=== PATIENT | male | born 1975 | race Hispanic/Latino ===

== ENCOUNTER 2018-07-18 09:54 | Emergency (ER) | payer BC ==
[2018-07-18 10:11] VITALS: BP 145/78; PULSE 64; RESP 16; TEMP 97.7; O2SAT 100; BMI 25.7
[2018-07-18] MEDS ORDERED: Sodium Chloride 0.9% 1,000 ML IV STA (10:20)
--- NOTE | 2018-07-18 10:39 | ED PDOC ---
HPI: Back Time Seen by Provider: 07/18/18 10:16 Chief Complaint (Nursing): Back Pain History Per: Patient History/Exam Limitations: no limitations Onset/Duration Of Symptoms: Hrs Current Symptoms Are (Timing): Intermittent Episodes Additional Complaint(s): No PMHx presenting with R flank pain, woke him up from sleep around 7AM, had one episode of nausea and vomiting, states pain is radiating forward into abdomen. No fevers, chills. No surgeries. No urinary symptoms. PMD: Ashley SIMMONS Past Medical History Reviewed: Historical Data, Nursing Documentation, Vital Signs Vital Signs: Last Vital Signs Temp 97.7 F 07/18/18 10:09 Pulse 64 07/18/18 10:09 Resp 16 07/18/18 10:09 BP 145/78 07/18/18 10:09 Pulse Ox 100 07/18/18 10:09 - Medical History PMH: No Chronic Diseases - Surgical History Surgical History: No Surg Hx - Family History Family History: States: No Known Family Hx - Home Medications Home Medications: Ambulatory Orders Medication Instructions Recorded Hydrocodone/Acetaminophen [Vicodin 1 each PO Q8 #15 tablet 07/18/18 Es 7.5-300 mg Tablet] Ibuprofen [Motrin Tab] 600 mg PO Q6 #30 tab 07/18/18 Tamsulosin [Flomax] 0.4 mg PO DAILY #10 cap 07/18/18 - Allergies Allergies/Adverse Reactions: Allergies Allergy/AdvReac Type Severity Reaction Status Date / Time No Known Allergies Allergy Verified 07/18/18 10:14 Review of Systems ROS Statement: Except As Marked, All Systems Reviewed And Found Negative Gastrointestinal: Positive for: Nausea, Vomiting, Abdominal Pain Genitourinary Male: Negative for: Dysuria Physical Exam - Reviewed Nursing Documentation Reviewed: Yes Vital Signs Reviewed: Yes - Physical Exam Appears: Positive for: Well, Non-toxic, No Acute Distress Head Exam: Positive for: ATRAUMATIC, NORMAL INSPECTION, NORMOCEPHALIC Skin: Positive for: Normal Color, Warm, DRY Eye Exam: Positive for: EOMI, Normal appearance, PERRL ENT: Positive for: Normal ENT Inspection Neck: Positive for: Normal, Painless ROM Cardiovascular/Chest: Positive for: Regular Rate, Rhythm Respiratory: Positive for: CNT, Normal Breath Sounds Gastrointestinal/Abdominal: Positive for: Normal Exam, Soft, Tenderness (R sided Abdominal tenderness, negative mcBurneys). Negative for: Mass, Distended, Guarding, Rebound Back: Positive for: R CVA Tenderness Extremity: Positive for: Normal ROM Neurologic/Psych: Positive for: Alert, Oriented - Laboratory Results Result Diagrams: 07/18/18 10:39 07/18/18 10:39 - ECG O2 Sat by Pulse Oximetry: 100 Medical Decision Making Medical Decision MakinAM A/P: 43 year old M with no PMHx presenting with R flank pain, nausea, vomiting --Patient well appearing, standing in room, normal vitals, no distress --Differential includes but not limited to: renal colic, muscle strain, pyelo (although unlikely) --Will check CT, labs, give IVF/toradol --Will continue to monitor 1200PM --CT shows 4.8mm calculus --Patient currently feeling much better, tolerating PO, appearing well --Will refer patient to urology --Discussed taking narcotics safely and only for severe pain --Very well appearing upon discharge Disposition - Clinical Impression Clinical Impression: Kidney stone - Disposition Referrals: Mitul Lainez MD [Staff Provider] - Disposition: Routine/Home Disposition Time: 12:04 Condition: GOOD Prescriptions: Hydrocodone/Acetaminophen [Vicodin Es 7.5-300 mg Tablet] 1 each PO Q8 #15 tablet Ibuprofen [Motrin Tab] 600 mg PO Q6 #30 tab Tamsulosin [Flomax] 0.4 mg PO DAILY #10 cap Instructions: Kidney Stones in Adults, How to Strain Your Urine, Opioids for Short-Term Treatment of Pain, Taking Narcotics Safely Forms: [employer] (Sinhala)
[2018-07-18 10:50] LABS: BASO # 0.1 K/uL (0.0-0.2); BASO % 0.9 % (0.0-2.0); EOS # 0.1 K/uL (0.0-0.7); EOS % 0.5 % (0.0-4.0); HEMOGLOBIN 14.3 g/dL (12.0-18.0); LYMPH # 1.6 K/uL (1.0-4.3); LYMPH % 10.8 % (20.0-40.0); MEAN CELL VOLUME 88.7 fl (80.0-94.0); MEAN CORPUSCULAR HEMOGLOBIN 29.2 pg (27.0-31.0); MEAN PLATELET VOLUME 8.2 fl (7.2-11.7); MONO # 0.5 K/uL (0.0-0.8); MONO % 3.6 % (0.0-10.0); NEUT # 12.1 K/uL (1.8-7.0); NEUT % 84.2 % (50.0-75.0); RBC 4.89 Mil/uL (4.40-5.90); RED CELL DISTRIBUTION WIDTH 14.2 % (11.5-14.5); WHITE BLOOD COUNT 14.4 K/uL (4.8-10.8)
[2018-07-18 10:56] LABS: URINE BILIRUBIN NEGATIVE (NEGATIVE); URINE BLOOD LARGE (NEGATIVE); URINE CLARITY SLIGHTY-CLOUDY (Clear); URINE COLOR YELLOW (YELLOW); URINE GLUCOSE (UA) NEG (NEGATIVE); URINE LEUKOCYTE ESTERASE NEG Leu/uL (Negative); URINE PROTEIN 30 mg/dL (NEGATIVE); URINE UROBILINOGEN 0.2-1.0 mg/dL (0.2-1.0)
[2018-07-18 10:57] LABS: BLOOD UREA NITROGEN 20 mg/dl (9-20); CALCIUM 9.3 mg/dL (8.4-10.2); GFR NON-AFRICAN AMERICAN > 60
--- NOTE | 2018-07-18 11:55 | CT ---
Date of service: 07/18/2018 PROCEDURE: CT Abdomen and Pelvis HISTORY: Right flank pain, nausea, vomiting COMPARISON: None. TECHNIQUE: CT scan of the abdomen and pelvis was performed without oral or intravenous contrast.. Additional 2D sagittal and coronal reformatted images were obtained. . Contrast dose: Radiation dose: Total exam DLP = 552.47 mGy-cm. This CT exam was performed using one or more of the following dose reduction techniques: Automated exposure control, adjustment of the mA and/or kV according to patient size, and/or use of iterative reconstruction technique. FINDINGS: LOWER THORAX: Heart size within range of normal. No significant pericardial effusion. Small to medium-sized hiatal hernia with wall thickening of the distal esophagus likely due to protrusion of gastric mucosa. Possibility of esophagitis not excluded. Minimal passive/dependent type atelectasis both posterior lower lung quinteros.. Minimal linear scarring also seen left lung base. LIVER: Normal in size. No intrahepatic ductal dilatation. GALLBLADDER AND BILE DUCTS: No calcified gallstones. No biliary dilatation PANCREAS: Normal in size. No ductal dilatation. SPLEEN: Normal in size. ADRENALS: Normal in size. No discrete nodule. KIDNEYS AND URETERS: There is an approximately 4.8 mm calculus the distal right ureter near the UVJ region with mild to moderate right-sided hydronephrosis.. Mild infiltration changes and fluid seen in the perinephric fat.. Punctate nonobstructing calcification lower pole collecting system left kidney. No evidence of left-sided hydronephrosis. Hydronephrosis. VASCULATURE: No aortic aneurysm. No aortic atherosclerotic calcification or mural plaque present. BOWEL: The small bowel loops are normal in caliber. The colon is normal in size. No bowel dilatation or wall thickening. No bowel obstruction. APPENDIX: Normal appendix. PERITONEUM: No free fluid. No free air. Small fat containing umbilical hernia. Small fat containing left inguinal hernia. LYMPH NODES: No enlarged lymph nodes. BLADDER: The urinary bladder is incompletely distended which in part accounts for thick-walled appearance. Muscular hypertrophy may contribute. Correlation with urinalysis to exclude a cystitis. REPRODUCTIVE: Prostate gland measures approximately 4.4 cm in transverse dimension. Prostatic calcifications present. BONES: Mild multilevel degenerative spondylosis of the lower thoracic and lumbar spine. Of. The very slight levoscoliosis and or side bending-spasm of the upper torso to the right OTHER FINDINGS: None. IMPRESSION: There is an approximately 4.8 mm calculus the distal right ureter near the UVJ region with mild to moderate right-sided hydronephrosis.. Mild infiltration changes and fluid seen in the perinephric fat... Punctate nonobstructing calcification lower pole collecting system left kidney.
== END 2018-07-18 12:43 | disposition home or self-care (01) ==
LOC: H.ER 09:54 → SUPCPDRO 09:54 → H.ER 12:43
DX: N13.2 Hydronephrosis with renal and ureteral calculous obstruction (principal)
CPT/HCPCS: 74176; 80048; 81003; 85025; 87086; 96374; 99284; J1885; J7030